=== PATIENT | female | born 2000 | race Caucasian/White ===

== ENCOUNTER 2020-11-14 13:28 | Emergency (ER) | payer BC, SELFPAY ==
[2020-11-14 13:34] VITALS: BP 126/81; PULSE 86; RESP 18; TEMP 36.9
--- NOTE | 2020-11-14 13:35 | W.ED.GENAD ---
Discharge Plan Disposition Patient Disposition: HOME Condition: Stable Discharge Details Clinical Impression: Closed head injury with concussion, Hematuria Primary Care Provider: Unknown,Unknown ED Provider: Eleazar Krishnan Discharge Instructions Instructions: Concussion (ED), Head Injury (ED), Hematuria (ED) Additional Instructions: At this time your urinalysis reveals blood in your urine but other laboratory values and imaging are all unremarkable. [id number] Tylenol as directed. Cool compresses every 2 hours for 20 minutes. Brain rest as we discussed. Please watch for new or worsening symptoms and return to the ER for any concerns. I do understand that you do not live here, and she is at [facility]. I strongly recommend that if she is not improving over the next few days that you get her reevaluated either through your primary care provider or a local neurologist where you live. I also recommend having her urine rechecked for blood in the future after a primary care provider. Discharge Data Discharge Date/Time-TO BE ENTERED AT DEPARTURE: 11/14/20 16:05 Medical Decision Making This is a 20-year-old female presenting for presumptive head injury after falling off of a horse, was wearing a helmet, although the circumstances of the injury are vague. Will presume a head injury secondary to fall off a horse but certainly cannot rule out syncope. No obvious distracting injuries. Patient is awake, alert, oriented to self and location, as well as situation, unsure of exact date. Will obtain routine laboratory values, CT head and C-spine, plain film of chest and pelvis. CT imaging of head and neck read by radiology as no evidence of acute intracranial abnormality or no evidence for acute posttraumatic abnormality. Awaiting official read on chest x-ray and pelvis although read by me as negative Laboratory values reveal an anion gap of 12.2, large blood, greater than 50 red cells in her urine, otherwise unremarkable. C-collar removed. Discussed hematuria, patient reports that she does not have her menses. Will obtain CT imaging of the abdomen and pelvis for further evaluation of potential hematuria X-ray of chest and pelvis confirmed by radiology as no acute findings. CT imaging of the abdomen and pelvis with contrast read by radiology as constipation, distended urinary bladder. Upon reevaluation patient is sitting up resting comfortably. She has no new acute concerns or complaints. Her parents are now in her exam room. Discussed her presentation and work-up thus far including the CT imaging of her abdomen and pelvis. She lives local but they live about an hour south, and she goes to school at [employer]. They plan to bring her home with them tonight so that she will not be alone. We discussed [id number] medication such as Tylenol, cool compresses, and careful observation. Encouraged to return to this ER or any closest ER for new or worsening symptoms. We discussed concussion, brain rest, and importance of outpatient follow-up. Both of her parents have a primary care provider approximately an hour south of here and they plan to have her follow-up there if her symptoms persist and will seek neurology consultation locally if her symptoms persist. Upon discharge patient is awake, alert, ambulates steadily. No vomiting while here in the ER. Reports just a dull mild headache. Otherwise no complaints. Standard discharge and return precautions given. Patient and family have no additional questions or concerns. We also discussed her hematuria and the importance of outpatient reevaluation for this. This documentation was generated using [employer] dictation system, please disregard any oddities of phrase or misspellings. Imaging Data Radiologic Study: Attestation: I personally reviewed and interpreted this imaging study as follows: Imaging: X-Ray and CT Scan Radiologist's impression: CT imaging of head, C-spine, abdomen pelvis and plain film of chest and pelvis read by radiology as negative Lab Data Lab results reviewed: Yes I reviewed the patient's lab results. Labs: Laboratory Tests Range/Units 11/14/20 11/14/20 11/14/20 13:48 13:48 14:20 WBC (4.4-10.8) 10^3/uL 8.10 RBC (3.93-5.22) 10^6/uL 4.84 Hgb (11.2-15.7) g/dL 14.6 Hct (36.0-46.0) % 43.4 MCV (80-95) fL 89.7 MCH (27.0-33.0) pg 30.2 MCHC (32.0-36.0) % 33.6 RDW (11.7-14.6) % 12.2 Plt Count (130-400) 10^3/uL 275 MPV (8.0-11.0) fL 10.2 Sodium (136-145) mmol/L 142 Potassium (3.5-5.1) mmol/L 3.8 Chloride (98-107) mmol/L 105 Carbon Dioxide (21.0-32.0) mmol/L 24.8 Anion Gap (3-11) mmol/L 12.2 H BUN (7-18) mg/dL 17 Creatinine (0.55-1.02) mg/dL 0.7 Estimated GFR/1.73 m2 (mL/min/1.73m2) >= 60.00 Glucose (74-106) mg/dL 93 Calcium (8.5-10.1) mg/dL 9.0 Total Bilirubin (0.2-1.0) mg/dL 0.6 AST (15-37) U/L 18 ALT (14-59) U/L 22 Alkaline Phosphatase (46-116) U/L 76 Troponin I (<0.06) ng/mL < 0.05 Total Protein (6.4-8.2) g/dL 8.0 Albumin (3.4-5.0) g/dL 4.5 Lipase (73-393) U/L 201 Urine Color (Yellow) [place] Urine Clarity (Clear) Sl Cloudy Urine pH (5-8) 7.5 Ur Specific [place] (1.005-1.025) 1.015 Urine Protein (Negative) mg/dL Negative Urine Ketones (Negative) mg/dL Negative Urine Blood (Negative) Large H Urine Nitrite (Negative) Negative Urine Bilirubin (Negative) Negative Urine Urobilinogen (Up TO 0.2) EU/dL 0.2 Ur Leukocyte Esterase (Negative) Negative Urine RBC (0-2) HPF >50 H Urine WBC (0-5) HPF 0-2 Ur Epithelial Cells (Negative) HPF Few Urine Crystals (Negative) HPF Negative Urine Bacteria (Negative) HPF Rare Urine Casts (Negative) LPF Negative Urine Mucus (Negative) Negative Ur Culture Indicated? No Urine Glucose (Negative) mg/dL Negative ECG Data Attestation: I personally reviewed and interpreted this ECG (s) as follows: Interpretation: Please see official report by Dr. Moreau. Sinus bradycardia, ventricular to 58. No STEMI. HPI General Mode of arrival: ambulatory. Date/Time Provider Initiated Documentation: 11/14/20 13:34. Limitations to Documentation: no limitations. Information obtained by: patient (and friend). HPI Narrative: This is a 20-year-old female, denies any significant past medical history, presenting to the ER for a head injury and altered mental status. Details are vague, pieced together between the patient and her friend Elodia. Patient apparently went out riding a horse around noon, soon after Elodia saw the horse come back by itself. She went out to go find Ashley he had approximately 2 minutes later found her walking down the trail. She was wearing her helmet. There is a small amount of damage to the left side of the helmet unknown whether this is new or old. Elodia states that initially he will told her that she believes the horse had been stung or bit, and reacting to this, she fell off backwards. Elodia states that she was not complaining of anything else at the time but subsequently has become more confused. Patient states I think I hit my head. This was unwitnessed and unsure whether or not there was any LOC. Patient repeats multiple times I think I have a concussion, has anyone called my work? Patient reports a mild dull global headache worse in the posterior aspect. She denies any visual changes, neck pain, chest pain, shortness of breath, tongue injury, chest pain, shortness of breath abdominal pain, nausea, vomiting, bowel or bladder incontinence and/or retention, numbness, tingling, weakness, pain in her extremities. Related Data Allergies Allergy/AdvReac Type Severity Reaction Status Date / Time No Known Allergies Allergy Unverified 11/14/20 13:38 Review of Systems Constitutional Constitutional: Reports headache(s) and Denies weakness Eyes Eyes: Denies change in vision ENT Ears, Nose, Mouth, and Throat: Reports headache(s) and Denies neck pain Cardiovascular Cardiovascular: Denies chest pain and Denies dyspnea Respiratory Respiratory: Denies dyspnea Gastrointestinal Gastrointestinal: Denies abdominal pain, Denies nausea and Denies vomiting Musculoskeletal Musculoskeletal: Denies back pain, Denies neck pain, Denies numbness and Denies tingling Neurologic Neurologic: Reports headache(s), Denies numbness, Denies tingling and Denies weakness Hematologic/Lymphatic Hematologic/Lymphatic: Denies easy bleeding and Denies easy bruising PFS Social History Smoking/Tobacco Use Status: Never Smoking risk assessment performed?: Yes Alcohol Intake: current Alcohol Intake frequency: a few times a month Drug use: Never Substance use type: does not use Do you feel safe at home: Yes Do you feel safe in your relationship?: Yes Exam Const General: cooperative, healthy appearing, comfortable and no acute distress Orientation: alert, awake, oriented to person, oriented to place and confused (Does not know the date) [facility] Head: normal to inspection, normocephalic and atraumatic Ears: external ears normal, TM's normal bilaterally and EAC's normal General nose exam: external nose normal Face and sinus: normal facial exam Mouth: oral mucosae normal and moist mucous membranes Throat: posterior oropharynx normal Eyes General: appearance normal, both eyes and all related structures Alignment and Position: alignment normal Periorbital: periorbital findings normal Eyelids: eyelids normal Conjunctivae: conjunctivae normal Sclera: sclerae normal Cornea: corneas normal Pupils: PERRL EOM: EOM intact bilaterally Direct ophthalmoscopy: normal light reflex Neck Neck: normal visual inspection, trachea midline, supple and other (Diffuse superior discomfort, patient in a c-collar) Chest Chest: normal inspection of the chest and normal palpation of entire chest wall Resp Effort & Inspection: normal respiratory effort and able to speak in complete sentences Auscultation: clear to auscultation bilaterally Cardio Rate: regular rate Rhythm: regular rhythm GI Inspection: normal to inspection Palpation: soft, not firm, no guarding and nontender Auscultation: normal bowel sounds Back/Spine/Pelvis Back: no CVA tenderness and No back tenderness Other: While maintaining C-spine precautions, patient rolled to her left, unremarkable exam Skin General skin exam: no rashes or lesions noted Neuro General: patient alert, patient awake, oriented Patient Orientation: Person, Place and Time, moves all extremities and no focal motor deficits Cranial Nerves: CN's II-XI intact bilaterally Speech: speech normal Gait: normal gait Motor: muscle tone normal throughout and strength 5/5 throughout Sensory Exam: no sensory deficits noted Extrem General: full ROM, capillary refill normal, no pedal edema and no calf tenderness Other: Abrasion right thumb, otherwise unremarkable. Psych Appearance: grossly normal Mental Status: mental status grossly normal
--- NOTE | 2020-11-14 13:45 | DI.RAD_ITS ---
Exam(s) XR PELVIS AP EXAM: XR PELVIS AP CLINICAL HISTORY: fall off horse. TECHNIQUE: 2D digital imaging was performed. COMPARISON: No exams were available for comparison FINDINGS: BONES: No acute fracture is present. No bony destructive lesion is seen. JOINTS: No dislocation present. No joint space narrowing is present. SOFT TISSUE: Normal. There is an IUD present. IMPRESSION: Unremarkable radiographs of the pelvis. DATA REPOSITORY: RADIATION DOSE DELIVERED:
--- NOTE | 2020-11-14 13:45 | DI.CT_ITS ---
Exam(s) CT HEAD CERVICAL SPINE WO EXAM: CT HEAD CERVICAL SPINE WO CLINICAL HISTORY: fall from horse, ams. TECHNIQUE: Imaging Protocol: Axial computed tomography images with coronal and sagittal reformatted images were created and reviewed COMPARISON: No exams were available for comparison FINDINGS: CT Head: Ventricles and Extra axial spaces: Normal in size and morphology for the patient's age. Hemorrhage: None. Cerebral parenchyma: Normal. Midline shift: None. Brainstem/Cerebellum: Normal. Calvarium: Normal. Visualized Paranasal sinuses/Mastoids: Clear. Soft Tissues: Unremarkable. CT Cervical Spine: Bones: No acute fracture or subluxation. Soft Tissues: Unremarkable. Lung Apices: Clear. IMPRESSION: 1. No acute intracranial process. 2. No acute fracture or subluxation in the cervical spine. RADIATION DOSE DELIVERED: 1,221.01mGy.cm Total DLP DATA REPOSITORY: All CT scans at this facility are submitted to the National Radiology Data Registry (NRDR) Dose Index Registry (DIR) with the [employer] (ACR). RADIATION OPTIMIZATION: All CT scans at this facility use at least one of these dose optimization te chniques: automated exposure control; mA and/or kV adjustment per patient size (includes targeted exa ms where dose is matched to clinical indication); or iterative reconstruction.
--- NOTE | 2020-11-14 13:45 | RT.EKG_ITS ---
APPROVED REPORT Exam: Resting ECG Reason for Exam: [facility] Patient Location: E HR:58 bpm ECG Measurements Heart Rate [address] 119 P 31 QRSd 82 QRS 50 QT 401 T 54 QTc 396 Conclusion Sinus bradycardia...rate< 60
--- NOTE | 2020-11-14 13:53 | DI.RAD_ITS ---
Exam(s) XR CHEST 1V IN DI DEPT EXAM: XR CHEST 1V IN DI DEPT CLINICAL HISTORY: fall off horse TECHNIQUE: 2D digital imaging was performed. COMPARISON: No exams were available for comparison FINDINGS: MEDIASTINUM: Normal. HEART: Normal. PULMONARY VASCULATURE: Normal. LUNGS: Clear. PLEURAL SPACE: No pleural effusion or pneumothorax. BONE:Within normal limits for the patient's age. OTHER FINDINGS:Normal. IMPRESSION: No acute pulmonary findings. DATA REPOSITORY: RADIATION DOSE DELIVERED:
[2020-11-14 14:03] LABS: HCT 43.4 % (36.0-46.0); HGB 14.6 g/dL (11.2-15.7); MCH 30.2 pg (27.0-33.0); MCHC 33.6 % (32.0-36.0); MCV 89.7 fL (80-95); MPV 10.2 fL (8.0-11.0); Platelet Count 275 10^3/uL (130-400); RBC 4.84 10^6/uL (3.93-5.22); RDW 12.2 % (11.7-14.6); RDW-SD 40.3 fL
[2020-11-14 14:20] LABS: ALT 22 U/L (14-59); AST 18 U/L (15-37); Albumin 4.5 g/dL (3.4-5.0); Alkaline Phosphatase 76 U/L (46-116); Anion Gap 12.2 mmol/L (3-11); BUN 17 mg/dL (7-18); Bilirubin, Total 0.6 mg/dL (0.2-1.0); CO2 24.8 mmol/L (21.0-32.0); CREATININE 0.7 mg/dL (0.55-1.02); Chloride 105 mmol/L (98-107); Glucose 93 mg/dL (74-106); Lipase 201 U/L (73-393); Potassium 3.8 mmol/L (3.5-5.1); Sodium 142 mmol/L (136-145); Troponin I < 0.05 ng/mL (<0.06)
[2020-11-14 14:24] LABS: Bilirubin Negative (Negative); Blood Large (Negative); Clarity Sl Cloudy (Clear); Glucose Negative (Negative); Ketones Negative (Negative); Leukocyte Esterase Negative (Negative); Nitrite Negative (Negative); Specific Gravity 1.015 (1.005-1.025); Urobilinogen 0.2 EU/dL (Up TO 0.2); pH 7.5 (5-8)
[2020-11-14 14:30] LABS: Bacteria Rare HPF (Negative); C & S Indicated? No; Casts Negative LPF (Negative); Crystals Negative HPF (Negative); Epithelial Cells Few HPF (Negative); Mucus Negative (Negative); RBC >50 HPF (0-2); WBC 0-2 HPF (0-5)
--- NOTE | 2020-11-14 14:45 | DI.CT_ITS ---
Exam(s) CT ABDOMEN PELVIS W EXAM: CT ABDOMEN PELVIS W CLINICAL HISTORY: trauma, fell off horse, hematuria TECHNIQUE: Imaging Protocol: Axial computed tomography images with coronal and sagittal reformatted images were created and reviewed CONTRAST MATERIAL: Intravenous: Omnipaque 350 Contrast volume:77 mL Oral: No COMPARISON: No exams were available for comparison FINDINGS: ABDOMEN: Lung Bases: Normal where visualized. Liver: Normal density. No measurable mass. Portal, Superior Mesenteric, and Splenic Veins: Unremarkable. Gallbladder and Biliary Tract: No radiodense calculus or dilation. Pancreas: Normal density, no abnormal calcifications or inflammatory process. Spleen: Normal. Adrenals: No masses seen. Kidneys: Normal size, contour and axis. No radiodense stones or obstructive uropathy. There is a tiny hypodensity in the inferior pole of the left kidney. It is too small for further characterization b ut likely reflects a small cyst. Abdominal Aorta: Abdominal portion non-dilated. Bowel: No obstruction or bowel wall thickening. Appendix is unremarkable. There is a large amount of stool throughout the colon consistent with constipation. Peritoneal Cavity: There is a trace amount of free fluid in the pelvis in the left pericolic gutter. No free air. Lymph Nodes: Within normal limits. Bones: Within normal limits for the patient's age. Soft Tissues: Unremarkable. PELVIS: Bladder: Symmetric distention, no gross wall thickening. Reproductive Organs: There is an IUD in good position. Lymph Nodes: Within normal limits. Bones: Within normal limits for the patient's age. IMPRESSION: No evidence of acute abdominal pelvic organ injury or fracture. RADIATION DOSE DELIVERED: 584.21mGy.cm Total DLP DATA REPOSITORY: All CT scans at this facility are submitted to the National Radiology Data Registry (NRDR) Dose Index Registry (DIR) with the [employer] (ACR). RADIATION OPTIMIZATION: All CT scans at this facility use at least one of these dose optimization te chniques: automated exposure control; mA and/or kV adjustment per patient size (includes targeted exa ms where dose is matched to clinical indication); or iterative reconstruction.
--- NOTE | 2020-11-14 15:02 | DI.VRAD_ITS ---
PROCEDURE INFORMATION: Exam: CT Head Without Contrast Exam date and time: 11/14/2020 1:56 PM Age: 20 years old Clinical indication: Injury or trauma; Blunt trauma (contusions or hematomas); Consciousness not specified; Injury details: Fall from horse, AMS TECHNIQUE: Imaging protocol: Computed tomography of the head without contrast. COMPARISON: No relevant prior studies available. FINDINGS: Brain: Normal. No hemorrhage. Unremarkable white matter. No mass effect. Cerebral ventricles: No ventriculomegaly. Paranasal sinuses: Visualized sinuses are unremarkable. No fluid levels. Mastoid air cells: Visualized mastoid air cells are well aerated. Bones/joints: Unremarkable. No acute fracture. Soft tissues: Unremarkable. IMPRESSION: No evidence for acute intracranial abnormality. PROCEDURE INFORMATION: Exam: CT Cervical Spine Without Contrast Exam date and time: 11/14/2020 1:56 PM Age: 20 years old Clinical indication: Injury or trauma; Blunt trauma (contusions or hematomas); Consciousness not specified; Injury details: Fall from horse, AMS TECHNIQUE: Imaging protocol: Computed tomography images of the cervical spine without contrast. COMPARISON: No relevant prior studies available. FINDINGS: Bones/joints: No acute fracture. Normal alignment. Discs/Spinal canal/Neural foramina: No significant disc protrusion. No severe spinal canal stenosis. No significant neural foraminal narrowing. Lungs: Lung apices are normal. Soft tissues: Unremarkable. IMPRESSION: No evidence for acute posttraumatic abnormality. Dictated and Authenticated by: Dinorah Camarillo MD. Ordering:REYES Bush MD
[2020-11-14 15:13] VITALS: BP 100/57; PULSE 68; RESP 12; O2SAT 99
--- NOTE | 2020-11-14 15:25 | DI.VRAD_ITS ---
PROCEDURE INFORMATION: Exam: XR Chest Exam date and time: 11/14/2020 2:36 PM Age: 20 years old Clinical indication: Other: Fell of horse TECHNIQUE: Imaging protocol: XR of the chest. Views: 1 view. COMPARISON: CT HEAD CERVICAL SPINE WO 11/14/2020 2:37 PM FINDINGS: Lungs: Unremarkable. No consolidation. Pleural spaces: Unremarkable. No pleural effusion. No pneumothorax. Heart/Mediastinum: Unremarkable. No cardiomegaly. Bones/joints: Unremarkable. IMPRESSION: No acute findings. Dictated and Authenticated by: Amisha Estrada MD. Ordering:REYES Bush MD
--- NOTE | 2020-11-14 15:28 | DI.VRAD_ITS ---
PROCEDURE INFORMATION: Exam: XR Pelvis Exam date and time: 11/14/2020 1:56 PM Age: 20 years old Clinical indication: Other: Fell off horse TECHNIQUE: Imaging protocol: XR pelvis. Views: 1 or 2 view. COMPARISON: No relevant prior studies available. FINDINGS: Bones/joints: Unremarkable. No acute fracture. Soft tissues: Unremarkable. Organs: IUD IMPRESSION: No acute findings Dictated and Authenticated by: Amisha Estrada MD. Ordering:REYES Bush MD
[2020-11-14] MEDS: Omnipaque 350 MG/ML 100 ML BTL IJ (15:29)
[2020-11-14] MEDS: Normal Saline Flush 10 ML SYR IVP (15:30)
[2020-11-14] MEDS: Normal Saline - Diluent 50 ML VIAL IV (15:30)
--- NOTE | 2020-11-14 15:37 | DI.VRAD_ITS ---
PROCEDURE INFORMATION: Exam: CT Abdomen And Pelvis With Contrast Exam date and time: 11/14/2020 2:56 PM Age: 20 years old Clinical indication: Injury or trauma; Fall; Blunt; Generalized; Injury date: 11/14/20 TECHNIQUE: Imaging protocol: Computed tomography of the abdomen and pelvis with contrast. COMPARISON: CR XR PELVIS AP 11/14/2020 2:44 PM FINDINGS: Liver: Normal. No mass. Gallbladder and bile ducts: Normal. No calcified stones. No ductal dilation. Pancreas: Normal. No ductal dilation. Spleen: Normal. No splenomegaly. Adrenal glands: Normal. No mass. Kidneys and ureters: Normal. No hydronephrosis. Stomach and bowel: Large amount of stool in the colon. Appendix: No evidence of appendicitis. Intraperitoneal space: Small amount of free fluid in the pelvis.. No free air. No significant fluid collection. Vasculature: Unremarkable. No abdominal aortic aneurysm. Lymph nodes: Unremarkable. No enlarged lymph nodes. Urinary bladder: Distended urinary bladder. No bladder wall thickening. Reproductive: IUD Bones/joints: Unremarkable. No acute fracture. Soft tissues: Unremarkable. IMPRESSION: 1. Constipation 2. Distended urinary bladder Dictated and Authenticated by: Amisha Estrada MD. Ordering:REYES Bush MD
--- NOTE | 2020-11-16 09:13 | NUR.NOTE ---
wsent to Care nika ruiz referral to [facility] concussion [facility]
--- NOTE | 2020-11-16 10:27 | CMPROGNOTE_ITS ---
- If Service Date Differs Date of service: 11/16/20 Time of Service: 10:27 Care Management Progress Note Ashley is seen in the ED for a closed head injury with concussion and hematuria. At the request of ED provider, CM coordinates a referral to [facility] for evaluation and treatment as needed.
== END 2020-11-14 16:05 | disposition home or self-care (01) ==
PROVIDERS: Emergency Provider Physician Assistant
DX: S06.0X9A Concussion with loss of consciousness of unspecified duration, initial encounter (principal); V80.010A Animal-rider injured by fall from or being thrown from horse in noncollision accident, initial encounter; R31.9 Hematuria, unspecified
CPT/HCPCS: 36415; 80053; 81025; 83690; 85027; 93005; 99285; 70450; 71045; 72125; 72170; 74177; 81003; 81015; 84484; 93010; 99284; J3490